=== PATIENT | female | born 1970 | race Caucasian/White ===

== ENCOUNTER → 2016-06-12 | Outpatient (CLI) | payer BC ==
--- NOTE | 2016-06-14 11:48 | MM ---
Reason for exam: screening (asymptomatic). Last mammogram was performed 1 year and 6 months ago. History: Patient is nulliparous. Benign US breast aspiration single LT of the left breast, September 09, 2013. Cancelled US Left Aspiration of the left breast, August 29, 2005. Physical Findings: A clinical breast exam by your physician is recommended on an annual basis and results should be correlated with mammographic findings. MG Screening Mammo w CAD Bilateral CC and MLO view(s) were taken. Prior study comparison: December 25, 2014, bilateral MG screening mammo w CAD. September 09, 2013, left breast MG diagnostic mammo LT wo CAD. August 21, 2013, bilateral MG diagnostic mammo w CAD YOAV. November 01, 2011, bilateral digital screening mammo w/CAD. The breast tissue is heterogeneously dense. This may lower the sensitivity of mammography. Previous mammotome biopsy within the left breast. Stable scattered bilateral breast calcifications. No significant changes when compared with prior studies. ASSESSMENT: Negative, BI-RAD 1 RECOMMENDATION: Routine screening mammogram of both breasts in 1 year.
== END | disposition home or self-care (01) ==
LOC: RADMAMWWP 13:55
PROVIDERS: ATTEND Family Medicine
DX: Z12.31 Encounter for screening mammogram for malignant neoplasm of breast (principal)

== ENCOUNTER 2017-10-17 08:25 | Day surgery (SDC) | payer BC ==
[2017-10-17] MEDS ORDERED: LIDOCAINE 1% 20 ML VIAL (10MG/ML) FOR IV START INTRADERMA ONE (11:00)
[2017-10-17] MEDS ORDERED: LACTATED RINGERS 1,000 ML IV ONE (11:00)
[2017-10-17] MEDS ORDERED: PROPOFOL 10 MG/ML 20 ML VIAL IV ONE (11:04)
[2017-10-17] MEDS ORDERED: LIDOCAINE 1% INJ 10MG/ML (20 ML MDV) ONE (11:04)
[2017-10-17 11:05] VITALS: RESP 16; TEMP 97.9
--- NOTE | 2017-10-17 11:05 | P.GSHP ---
History of Present Illness H&P Date: 10/17/17 CHIEF COMPLAINT: GERD HISTORY OF PRESENT ILLNESS: The patient is a 47-year-old female who presents reports gastroesophageal reflux disease. Upper endoscopy was offered for further evaluation and management. PAST MEDICAL HISTORY: Please see list. PAST SURGICAL HISTORY: Please see list. MEDICATIONS: Please see list. ALLERGIES: Please see list. SOCIAL HISTORY: No illicit drug use FAMILY HISTORY: No reports of Crohn disease or ulcerative colitis. REVIEW OF ORGAN SYSTEMS: CONSTITUTIONAL: No reports of fevers or chills. GI: Denies any blood in stools or constipation. PHYSICAL EXAM: VITAL SIGNS: Stable GENERAL: Well-developed and pleasant in no acute distress. HEENT: No scleral icterus. Extraocular movements grossly intact. Moist buccal mucosa. NECK: Supple without lymphadenopathy. CHEST: Unlabored respirations. Equal bilateral excursions. CARDIOVASCULAR: Regular rate and rhythm. Distal 2+ pulses. ABDOMEN: Soft, nondistended. MUSCULOSKELETAL: No clubbing, cyanosis, or edema. ASSESSMENT: 1. Gastroesophageal reflux disease PLAN: 1. Recommend proceeding with an upper endoscopy Past Medical History Past Medical History: GERD/Reflux Additional Past Medical History / Comment(s): current tx UTI,abnormal pap smear x2 and heavy menses with cramping & clotting,heart murmur History of Any Multi-Drug Resistant Organisms: None Reported Past Surgical History: Adenoidectomy, Cholecystectomy, Orthopedic Surgery, Tonsillectomy Additional Past Surgical History / Comment(s): ?rt ovary removed,lt knee x 2, left foot x 3 or 4 Past Anesthesia/Blood Transfusion Reactions: Motion Sickness, Postoperative Nausea & Vomiting (PONV) Additional Past Anesthesia/Blood Transfusion Reaction / Comment(s): no hx blood transfusion Smoking Status: Never smoker - Past Family History Mother Family Medical History: Hyperlipidemia, Hypertension Additional Family Medical History / Comment(s): precancerous polyps Father Family Medical History: Hyperlipidemia, Hypertension Medications and Allergies Home Medications Medication Instructions Recorded Confirmed Type Cetirizine HCl [Zyrtec] 10 mg PO DAILY 07/28/15 10/17/17 History Meloxicam 15 mg PO DAILY 07/28/15 10/17/17 History Multivitamins, Thera [Multivitamin] 1 tab PO DAILY 07/28/15 10/17/17 History Omeprazole [PriLOSEC] 20 mg PO DAILY PRN 07/28/15 10/17/17 History Pseudoephedrine [Sudafed] 30 mg PO Q4H PRN 07/28/15 10/17/17 History Furosemide [Lasix] 20 mg PO DAILY 10/17/17 10/17/17 History Ranitidine HCl [Zantac] 150 mg PO BID 10/17/17 10/17/17 History Allergies Allergy/AdvReac Type Severity Reaction Status Date / Time adhesive Allergy Rash/Hives Verified 10/17/17 10:44 hydrocodone bitartrate Allergy eye Verified 10/17/17 10:44 [From Vicodin] swelling and itching Iodinated Contrast- Oral and Allergy Swelling Verified 10/17/17 10:44 IV Dye [Iodinated Contrast Media - IV Dye] peas Allergy Unknown Verified 10/17/17 10:44 Penicillins Allergy Anaphylaxis Verified 10/17/17 10:44 shellfish derived [Shrimp] Allergy Unknown Verified 10/17/17 10:44 walnut Allergy Unknown Verified 10/17/17 10:44
--- NOTE | 2017-10-17 11:17 | P.PCN ---
Date of Procedure: 10/17/17 Description of Procedure: PREOPERATIVE DIAGNOSIS: Gastroesophageal reflux disease. Morbid obesity. POSTOPERATIVE DIAGNOSIS: Morbid obesity. Gastric polyps Gastroesophageal reflux disease. Diaphragmatic hiatal hernia OPERATION: Esophagogastroduodenoscopy with biopsies along antrum. SURGEON: Marla Arce MD ANESTHESIA: MAC. INDICATIONS: The patient is a 47-year-old female who presents with a history of reflux disease. Benefits and risks of the procedure were described. Informed consent was obtained. DESCRIPTION: The patient was brought into the endoscopy suite and laid in the left lateral decubitus position. An Olympus gastroscope was passed along the posterior oropharynx down to the distal esophagus where the squamocolumnar junction was encountered at 35 cm from the incisors. The stomach was entered and no bile reflux was found. Additional findings are listed below. Biopsies with cold forceps were obtained of the antrum. The first through third portion of the duodenum was examined and unremarkable. Retroflexion of the scope confirmed Hill grade 2 lower esophageal valve. The squamocolumnar junction demonstrated no LA grade A erosive esophagitis. The stomach was desufflated. The patient tolerated the procedure well. FINDINGS: Squamocolumnar junction 32 cm from the incisors. Diaphragmatic hiatus at 35 cm. Hiatal hernia 3 cm Hill grade 2 lower esophageal valve. No LA grade A erosive esophagitis. No active duodenitis. Gastric polyp RECOMMENDATIONS: Upper endoscopy as needed. Plan - Discharge Summary New Discharge Prescriptions: No Action Multivitamins, Thera [Multivitamin] 1 tab PO DAILY Omeprazole [PriLOSEC] 20 mg PO DAILY PRN PRN Reason: reflux Meloxicam 15 mg PO DAILY Pseudoephedrine [Sudafed] 30 mg PO Q4H PRN PRN Reason: Congestion Cetirizine HCl [Zyrtec] 10 mg PO DAILY Ranitidine HCl [Zantac] 150 mg PO BID Furosemide [Lasix] 20 mg PO DAILY Discharge Medication List Cetirizine HCl [Zyrtec] 10 mg PO DAILY 07/28/15 [History] Meloxicam 15 mg PO DAILY 07/28/15 [History] Multivitamins, Thera [Multivitamin] 1 tab PO DAILY 07/28/15 [History] Omeprazole [PriLOSEC] 20 mg PO DAILY PRN 07/28/15 [History] Pseudoephedrine [Sudafed] 30 mg PO Q4H PRN 07/28/15 [History] Furosemide [Lasix] 20 mg PO DAILY 10/17/17 [History] Ranitidine HCl [Zantac] 150 mg PO BID 10/17/17 [History]
[2017-10-17 12:05] VITALS: BP 123/81; PULSE 81
== END 2017-10-17 12:12 | disposition home or self-care (01) ==
LOC: ORWHC2ENDO 08:25
PROVIDERS: ATTEND Surgery Plastic and Reconstructive Surgery
DX: K29.50 Unspecified chronic gastritis without bleeding (principal); K22.10 Ulcer of esophagus without bleeding; K44.9 Diaphragmatic hernia without obstruction or gangrene; K31.7 Polyp of stomach and duodenum; E66.01 Morbid (severe) obesity due to excess calories; Z79.1 Long term (current) use of non-steroidal anti-inflammatories (NSAID); Z79.899 Other long term (current) drug therapy; Z91.041 Radiographic dye allergy status; Z88.5 Allergy status to narcotic agent; Z91.018 Allergy to other foods; Z88.0 Allergy status to penicillin; Z91.013 Allergy to seafood; Z91.09 Other allergy status, other than to drugs and biological substances
CPT/HCPCS: 88305; 43239; J2001; J2704

== ENCOUNTER → 2017-10-24 | Outpatient (CLI) | payer BC ==
[2017-10-24 17:07] VITALS: BP 111/75; PULSE 91; TEMP 98.1; BMI 38.5
--- NOTE | 2017-10-24 17:36 | P.HPBAR ---
Bariatric H&P - History & Physicial H&P Date: 10/24/17 History & Physicial: Visit/CC: initial clinic visit Patient initial contact: Initial weight: Initial weight in pounds: Height: 4 ft 11 in Initial BMI: Last weight: Current weight: 86.545 kg Current weight in pounds: 190.80 Current BMI: 38.5 [place] body weight (based on NIH guidelines): 43.091 kg Excess body weight loss: The patient is a 47 year-old F who presents for Bariatric Assessment. HPI: Highest weight was 198 pounds. SHe has a family history of morbid obesity. She has severe reflux disease. PLAN: 1. She is looking into the bypass. Past Medical History Past Medical History: GERD/Reflux Additional Past Medical History / Comment(s): current tx UTI,abnormal pap smear x2 and heavy menses with cramping & clotting,heart murmur History of Any Multi-Drug Resistant Organisms: None Reported Past Surgical History: Adenoidectomy, Cholecystectomy, Orthopedic Surgery, Tonsillectomy Additional Past Surgical History / Comment(s): ?rt ovary removed,lt knee x 2, left foot x 3 or 4 Past Anesthesia/Blood Transfusion Reactions: Motion Sickness, Postoperative Nausea & Vomiting (PONV) Additional Past Anesthesia/Blood Transfusion Reaction / Comm: no hx blood transfusion Past Psychological History: No Psychological Hx Reported Smoking Status: Never smoker Past Alcohol Use History: None Reported Past Drug Use History: None Reported - Past Family History Mother Family Medical History: Hyperlipidemia, Hypertension Additional Family Medical History / Comment(s): precancerous polyps Father Family Medical History: Hyperlipidemia, Hypertension Surgical - Exam Vital Signs Temp Pulse BP 98.1 F 91 111/75 10/24/17 17:01 10/24/17 17:01 10/24/17 17:01 Bariatric Checklist Checklist: Plan: Checklist: EGD: 1. Hiatal hernia: 2. H. Pylori: HgbA1c: Vitamin D: Smoking: Never smoker Primary care physician referral: Psychiatry clearance: Cardiology clearance: Sleep study: Diet journal: VTE risk score: VTE risk level: Rehab needs at discharge:
== END ==
LOC: BARWHC3 15:41
PROVIDERS: ATTEND Surgery Plastic and Reconstructive Surgery
DX: E66.01 Morbid (severe) obesity due to excess calories (principal); K21.9 Gastro-esophageal reflux disease without esophagitis; Z68.38 Body mass index [BMI] 38.0-38.9, adult
CPT/HCPCS: 99211

== ENCOUNTER → 2017-11-22 | Outpatient (CLI) | payer BC ==
--- NOTE | 2017-11-23 11:51 | MM ---
Reason for exam: screening (asymptomatic). Last mammogram was performed 1 year and 5 months ago. History: Patient is nulliparous. Benign US breast aspiration single LT of the left breast, September 09, 2013. Cancelled US Left Aspiration of the left breast, August 29, 2005. Physical Findings: A clinical breast exam by your physician is recommended on an annual basis and results should be correlated with mammographic findings. MG 3D Screening Mammo W/Cad Bilateral CC and MLO view(s) were taken. Prior study comparison: June 12, 2016, bilateral MG screening mammo w CAD. December 25, 2014, bilateral MG screening mammo w CAD. The breast tissue is heterogeneously dense. This may lower the sensitivity of mammography. There are stable scattered calcifications. Previous mammotome biopsy in the left breast. No significant changes when compared with prior studies. ASSESSMENT: Benign, BI-RAD 2 RECOMMENDATION: Routine screening mammogram of both breasts in 1 year.
== END | disposition home or self-care (01) ==
LOC: RADMAMWWP 16:32
PROVIDERS: ATTEND Family Medicine
DX: Z12.31 Encounter for screening mammogram for malignant neoplasm of breast (principal)
CPT/HCPCS: 77063; 77067

== ENCOUNTER → 2018-03-20 | Outpatient (CLI) | payer BC ==
--- NOTE | 2018-03-20 15:45 | P.HPBAR ---
Bariatric H&P - History & Physicial H&P Date: 03/20/18 History & Physicial: Visit/CC: Patient initial contact: Initial weight: Initial weight in pounds: Height: Initial BMI: Last weight: Current weight: Current weight in pounds: Current BMI: [place] body weight (based on NIH guidelines): Excess body weight loss: The patient is a 48 year-old F who presents for Bariatric Assessment. HPI: Looking into reflux control. Recommend hiatal hernia for reflux disease. PLAN: 1. Two week protein diet 2. Alternative hiatal hernia repair described including gastric bypass. Past Medical History Past Medical History: GERD/Reflux Additional Past Medical History / Comment(s): current tx UTI,abnormal pap smear x2 and heavy menses with cramping & clotting,heart murmur History of Any Multi-Drug Resistant Organisms: None Reported Past Surgical History: Adenoidectomy, Cholecystectomy, Orthopedic Surgery, Tonsillectomy Additional Past Surgical History / Comment(s): ?rt ovary removed,lt knee x 2, left foot x 3 or 4 Past Anesthesia/Blood Transfusion Reactions: Motion Sickness, Postoperative Nausea & Vomiting (PONV) Additional Past Anesthesia/Blood Transfusion Reaction / Comm: no hx blood transfusion Past Psychological History: No Psychological Hx Reported Smoking Status: Never smoker Past Alcohol Use History: None Reported Past Drug Use History: None Reported - Past Family History Mother Family Medical History: Hyperlipidemia, Hypertension Additional Family Medical History / Comment(s): precancerous polyps Father Family Medical History: Hyperlipidemia, Hypertension Bariatric Checklist Checklist: Plan: Checklist: EGD: 1. Hiatal hernia: 2. H. Pylori: HgbA1c: Vitamin D: Smoking: Never smoker Primary care physician referral: Psychiatry clearance: Cardiology clearance: Sleep study: Diet journal: VTE risk score: VTE risk level: Rehab needs at discharge:
[2018-03-20 16:11] VITALS: BP 128/81; PULSE 79; TEMP 98.1; BMI 35.7
== END | disposition home or self-care (01) ==
LOC: BARWHC3 15:10
PROVIDERS: ATTEND Surgery Plastic and Reconstructive Surgery
DX: K21.9 Gastro-esophageal reflux disease without esophagitis (principal)
CPT/HCPCS: 99211

== ENCOUNTER 2018-07-05 05:46 | Inpatient (IN) | payer BC ==
--- NOTE | 2018-07-04 21:08 | P.GSHP ---
History of Present Illness H&P Date: 07/05/18 CHIEF COMPLAINT: Paraesophageal hiatal hernia with gastroesophageal reflux disease. HISTORY OF PRESENT ILLNESS: The patient is a 48-year-old female who presents with paraesophageal hiatal hernia. She has completed an upper endoscopy workup. Now she presents for surgical intervention. PAST MEDICAL HISTORY: Please see list. PAST SURGICAL HISTORY: Please see list. MEDICATIONS: Please see list. ALLERGIES: Please see list. SOCIAL HISTORY: No illicit drug use FAMILY HISTORY: No reports of Crohn disease or ulcerative colitis. REVIEW OF ORGAN SYSTEMS: CONSTITUTIONAL: No reports of fevers or chills. GI: Denies any blood in stools or constipation. PHYSICAL EXAM: VITAL SIGNS: Stable GENERAL: Well-developed pleasant and in no acute distress. HEENT: No scleral icterus. Extraocular movements grossly intact. Moist buccal mucosa. NECK: Supple without lymphadenopathy. CHEST: Unlabored respirations. Equal bilateral excursions. CARDIOVASCULAR: Regular rate and rhythm. Distal 2+ pulses. ABDOMEN: Soft, nondistended. No peritoneal signs. MUSCULOSKELETAL: No clubbing, cyanosis, or edema. SKIN: Well-perfused. Good skin turgor. ASSESSMENT: 1. Diaphragmatic paraesophageal hiatal hernia with severe gastroesophageal reflux disease. PLAN: 1. Recommend proceeding with a robotic paraesophageal hiatal hernia with possible mesh. 2. Benefits and risks of surgical intervention was discussed including possibility of open technique. 3. Inpatient hospitalization recommended of 2 nights 4. DVT prophylaxis. 5. Antibiotic prophylaxis. Past Medical History Past Medical History: GERD/Reflux Additional Past Medical History / Comment(s): hx. heart murmur, lower leg swelling History of Any Multi-Drug Resistant Organisms: None Reported Past Surgical History: Adenoidectomy, Cholecystectomy, Hysterectomy, Orthopedic Surgery, Tonsillectomy Additional Past Surgical History / Comment(s): ?rt ovary removed,lt knee x 2,left foot x 3 or 4 Past Anesthesia/Blood Transfusion Reactions: Postoperative Nausea & Vomiting (PONV) Additional Past Anesthesia/Blood Transfusion Reaction / Comment(s): no hx blood transfusion Smoking Status: Never smoker - Past Family History Mother Family Medical History: Hyperlipidemia, Hypertension Additional Family Medical History / Comment(s): precancerous polyps Father Family Medical History: Hyperlipidemia, Hypertension Medications and Allergies Home Medications Medication Instructions Recorded Confirmed Type Cetirizine HCl [Zyrtec] 10 mg PO DAILY 07/28/15 06/27/18 History Meloxicam 15 mg PO DAILY 07/28/15 06/27/18 History Multivitamins, Thera [Multivitamin] 1 tab PO DAILY 07/28/15 06/27/18 History Omeprazole [PriLOSEC] 20 mg PO DAILY PRN 07/28/15 06/27/18 History Furosemide [Lasix] 40 mg PO DAILY 10/17/17 06/27/18 History Ranitidine HCl [Zantac] 150 mg PO BID 10/17/17 06/27/18 History Ezetimibe [Zetia] 10 mg PO DAILY 10/24/17 06/27/18 History Allergies Allergy/AdvReac Type Severity Reaction Status Date / Time adhesive Allergy Rash/Hives Verified 06/27/18 12:36 hydrocodone bitartrate Allergy eye Verified 06/27/18 12:36 [From Vicodin] swelling and itching Iodinated Contrast- Oral and Allergy Swelling Verified 06/27/18 12:36 IV Dye [Iodinated Contrast Media - IV Dye] peas Allergy Unknown Verified 06/27/18 12:36 Penicillins Allergy Anaphylaxis Verified 06/27/18 12:36 shellfish derived [Shrimp] Allergy Unknown Verified 06/27/18 12:36 walnut Allergy Unknown Verified 06/27/18 12:36
[~2018-07-05 05:46] MED LIST: CLINDAMYCIN 900 MG in DEXTROSE 5% IN WATER 50 ML IVPB ONE; HEPARIN SODIUM,PORCINE 5,000 UNIT/ML 1 ML VIAL SQ ONE; LEVOFLOXACIN 500MG-D5W PMX 500 MG in DEXTROSE/WATER 1 100ML.BAG IVPB ONE
[2018-07-05] MEDS ORDERED: DEXAMETHASONE SOD PHOSPHATE 10 MG/ML 1 ML VIAL IV ONE (05:55)
[2018-07-05] MEDS ORDERED: HYDROmorphone 0.5 MG/0.5 ML SYRINGE IVP PRN (05:55)
[2018-07-05] MEDS ORDERED: ONDANSETRON 4 MG/2 ML VIAL IVP ONE (05:55)
[2018-07-05] MEDS ORDERED: SCOPOLAMINE 1.5MG/72HR PATCH TRANSDERM ONE (05:55)
[2018-07-05] MEDS ORDERED: SCOPOLAMINE 1.5MG/72HR PATCH TRANSDERM SCH (05:58)
[2018-07-05] MEDS ORDERED: CHLORHEXIDINE GLUCONATE 15 ML CUP MUCOUS MEM ONE (05:58)
[2018-07-05] MEDS ORDERED: PANTOPRAZOLE 40 MG/10 ML VIAL IV STA (05:58)
[2018-07-05] MEDS: LACTATED RINGERS 1,000 ML IV SCH (06:36)
[2018-07-05] MEDS ORDERED: LIDOCAINE 1% 20 ML VIAL (10MG/ML) FOR IV START INTRADERMA ONE (06:37)
[2018-07-05] MEDS ORDERED: ROCURONIUM BROMIDE 10 MG/ML 10 ML VIAL IV ONE (07:31)
[2018-07-05] MEDS ORDERED: KETOROLAC 30 MG/ML 1 ML VIAL ONE (07:31)
[2018-07-05] MEDS ORDERED: NEOSTIGMINE 1 MG/ML 10 ML VIAL ONE (07:31)
[2018-07-05] MEDS ORDERED: LIDOCAINE 1% INJ 10MG/ML (20 ML MDV) ONE (07:31)
[2018-07-05] MEDS ORDERED: PROPOFOL 10 MG/ML 20 ML VIAL IV ONE (07:31)
[2018-07-05] MEDS ORDERED: fentaNYL (PF) 50 MCG/ML 2 ML AMP ONE (07:31)
[2018-07-05] MEDS ORDERED: MIDAZOLAM 2 MG/2 ML VIAL ONE (07:31)
[2018-07-05] MEDS ORDERED: GLYCOPYRROLATE 0.2 MG/ML 2 ML VIAL ONE (07:31)
[2018-07-05] MEDS ORDERED: ePHEDrine SULFATE/0.9% NACL/PF 50 MG/5 ML SYRINGE IV ONE (07:31)
[2018-07-05] MEDS ORDERED: BUPIVACAIN-EPI 0.25%-1:200,000 30 ML VIAL SQ ONE (07:58)
[2018-07-05] MEDS ORDERED: LACTATED RINGERS 1,000 ML IV ONE (09:39)
[2018-07-05] MEDS ORDERED: NALOXONE 0.4 MG/ML 1 ML VIAL IV PRN (10:23)
[2018-07-05] MEDS ORDERED: diphenhydrAMINE 50 MG/ML 1 ML VIAL IVP PRN (10:30)
--- NOTE | 2018-07-05 10:36 | P.OP ---
Date of Procedure: 07/05/18 Description of Procedure: SURGEON: HOLLY LOPEZ MD PREOPERATIVE DIAGNOSES: 1. Symptomatic paraesophageal diaphragmatic hiatal hernia. 2. Gastroesophageal reflux disease, severe 3. Hypertensive heart disease 4. Anxiety disorder 5. Obesity, BMI 34.1. POSTOPERATIVE DIAGNOSES: 1. Symptomatic midline paraesophageal diaphragmatic hiatal hernia, incarcerated, 3 x 4 cm 2. Gastroesophageal reflux disease, severe 3. Hypertensive heart disease 4. Anxiety disorder 5. Obesity, BMI 34.1. OPERATION: 1. Robotic-assisted da Alejandra Xi laparoscopic repair of incarcerated paraesophageal hiatal hernia, 3 x 4 cm, with [place] Biopatch A 8 x 8 cm. 2. Intraoperative esophagogastroduodenoscopy ANESTHESIA: General with local anesthetic. ESTIMATED BLOOD LOSS: 5 mL SPECIMENS REMOVED: None. COMPLICATIONS: None. Condition: stable Disposition: floor FINDINGS: 1. Midline incarcerated paraesophageal hiatal hernia 3 x 4 cm 2. Intraoperative upper endoscopy confirms complete closure of hiatal hernia from Hill grade 4 to Hill grade 1 3. No gastric ulcers INDICATIONS: The patient is a 48-year-old female who presents with severe gastroesophageal reflux disease poorly controlled despite medications, and a symptomatic diaphragmatic hiatal hernia. Preoperative workup including upper endoscopy demonstrated a Hill grade 4 lower esophageal valve. Given the severity of symptoms, she had elected for surgical intervention. Benefits and risks including bleeding, infection, recurrence, dysphagia, injury to the lung, need for further surgery was described at length. Informed consent was obtained. DESCRIPTION: The patient was brought into the operating room and placed in supine position. Preoperatively she had received heparin subcutaneously for DVT prophylaxis. After general induction, the abdomen was prepped and draped in standard sterile fashion. The patient had previously voided prior to coming to the operating room. [place] draping was placed along the abdomen. A timeout protocol was confirmed with the surgical team, for which the patient's name, procedure to be performed including DVT prophylaxis with bilateral SCDs, and preoperative antibiotics were also confirmed. A robotic da Alejandra Xi system was prepped and primed. Her xipohoid to umbilicus length is 13 cm. At 12 cm from the xiphoid to just below the umbilicus, proposed port sites were marked with indelible marker along the left axillary line, left mid-clavicular line with each ports were marked 10 cm from each other. A 5 mm 0 degrees laparoscopic trocar entry was performed along the left upper quadrant. The abdomen was insufflated to 15 mmHg pressure was tolerated well. Diagnostic laparoscopy demonstrated no injury to bowel, viscera, or mesentery. No injury had occurred to the small bowel or viscera. Next, one 8 mm robotic port was placed along the right upper abdomen. An 8-mm port was were placed along the left lateral abdominal wall. The camera 8-mm port was maintained along the epigastrium via the hernia defect. Another 12 mm port was placed along the left upper abdominal wall after exchanging the 5 mm port. Please note that the ports were placed at least 20 cm away from the target anatomy. Care was taken to check that each robotic arm were safely away from collision with the bed or the patient. At the epigastrium, a medium sized Rachel liver retractor was placed under direct visualization with the Iron Sales Merchandiser placed under the right shoulder of the patient. All robotic arms were used. The patient was repositioned in reverse Trendelenburg position at 16-degrees after lowering the bed. The robot was docked above the right side of the patient. Using a grasper for arm 3, a grasper for arm 1, including vessel sealer for arm 2, the robotic system was docked and primed as described. Instruments were interchanged by the assistant men's soccer coach. I had sat at the console. The gastrohepatic ligament was cleaved using a vessel sealer. Next, the phrenoesophageal ligament was mobilized and the distal esophagus was mobilized circumferentially. The left and right crura was identified. Moderate dissection into the mediastinum was performed to release the esophagus into the abdominal cavity. The paraesophageal hiatal hernia sac was also incised and divided from the esophagus. Care was taken to avoid any gastrotomy. The measured defect was consistent with 4 cm axial length and 3 cm in width. After dissection, the distal esophagus of 3 cm was brought into the abdominal cavity. Once the hiatus and crura was dissected, 2-0 VLOC suture was placed to reapproximate the diaphragmatic hiatus posteriorly. To buttress the repair, a [place] Biopatch A was prepared along the back table and cut in half of a cosme-hole fashion as to reinforce the repair as an underlay. The mesh was placed along the crural repair and tagged using horizontal mattress sutures using 2-0 VLOC. I went to the head of the bed to perform intraoperative esophagogastroduodenoscopy. An Olympus gastroscope was passed through posterior oropharynx. Retroflexion of the scope confirmed a Hill grade 1 lower esophageal valve. The stomach had been desufflated. No evidence of leaks were found of the esophagus or stomach. The squamocolumnar junction and hiatus was placed at 40 cm from the incisors. The GI tract with desufflated This concluded the endoscopic portion of the case. The robot was undocked from the patient. I re-scrubbed into the case. All instruments and pneumoperitoneum and specimens were evacuated from the abdominal cavity. Incisions were reapproximated using 4-0 Monocryl in an interrupted subcuticular fashion. Liquid glue was applied to the skin. Local anesthetic was infiltrated in all wounds for postop analgesia. Multiple intra-abdominal films were obtained. At the end of the procedure, needle, sponge, and instrument count was verified correct by the surgical elastic knitter. The patient had tolerated the procedure well and was taken to the postanesthesia unit in stable condition. Intraoperative films were reviewed with the patient's family who was pleased with the level of care. Console time 71 minutes.
[2018-07-05] MEDS ORDERED: HYDROmorphone 1 MG/ML 1 ML SYRINGE IVP PRN (11:39)
[2018-07-05] MEDS: D5-0.45% NACL WITH KCL 20MEQ/L 1,000 ML IV SCH ×2 (14:12→19:56)
[2018-07-05] MEDS: SIMETHICONE 40 MG/0.6 ML DROPS 2,000 MG/30 ML BOTTLE PO SCH ×3 (14:13→23:57)
[2018-07-05] MEDS: HYOSCYAMINE ORAL DROPS 1.875 MG/15 ML BOTTLE PO SCH ×3 (14:14→23:57)
[2018-07-05] MEDS: METOCLOPRAMIDE 5 MG/ML 2 ML VIAL IVP SCH ×3 (14:15→23:56)
--- NOTE | 2018-07-05 15:16 | FL ---
EXAMINATION TYPE: FL esophagus cervic/pharynx DATE OF EXAM: 07/05/2018 LIMITED UGI-ESOPHAGRAM: CLINICAL HISTORY: Hiatal hernia and reflux-like symptoms status post Vaughn fundoplication surgery e shira today. TECHNIQUE: Limited esophagram is performed utilizing 20 oz of barium. A total of approximately 20 se conds of fluoroscopic time was utilized during procedure. 15 spot images are stable. FINDINGS: The patient swallowed contrast without difficulty or delay. Some underlying esophageal dys motility is present with abnormal secondary tertiary contractions. There is some delay in flow of con trast along the diaphragmatic hiatus into the stomach, there is no evidence of contrast extravasation to suggest leak. No persistent hiatal hernia is seen. Patient remains asymptomatic. Some contrast re paul in the mid to distal esophagus with reflux. Tiny amount of free air below right hemidiaphragm i s noted. Cholecystectomy clips are incidentally seen. IMPRESSION: No evidence of leak or persistent hiatal hernia status post Vaughn fundoplication surgery earlier today.
[2018-07-05] MEDS: KETOROLAC 30 MG/ML 1 ML VIAL IVP SCH ×2 (15:50→21:35)
--- NOTE | 2018-07-05 18:38 | P.PN ---
Progress Note - Text Progress Note Date: 07/05/18 She is doing well. Discharge home tomorrow.
[2018-07-05] MEDS: FAMOTIDINE 20 MG/2 ML VIAL IV SCH (21:38)
[2018-07-06 00:05] VITALS: RESP 16
[2018-07-06] MEDS: KETOROLAC 30 MG/ML 1 ML VIAL IVP SCH ×2 (03:36→10:16)
[2018-07-06] MEDS: METOCLOPRAMIDE 5 MG/ML 2 ML VIAL IVP SCH (05:59)
[2018-07-06] MEDS: HYOSCYAMINE ORAL DROPS 1.875 MG/15 ML BOTTLE PO SCH ×2 (06:00→13:32)
[2018-07-06] MEDS: SIMETHICONE 40 MG/0.6 ML DROPS 2,000 MG/30 ML BOTTLE PO SCH ×2 (06:00→13:31)
[2018-07-06] MEDS: D5-0.45% NACL WITH KCL 20MEQ/L 1,000 ML IV SCH ×2 (06:17→12:33)
[2018-07-06] MEDS: LACTATED RINGERS 1,000 ML IV SCH (06:18)
[2018-07-06 07:58] LABS: Basophils % (A) 0 %; Eosinophils # (A) 0.1 k/uL (0-0.7); Eosinophils % (A) 1 %; HCT 35.3 % (34.0-46.0); HGB 11.9 gm/dL (11.4-16.0); Lymphocytes # (A) 1.8 k/uL (1.0-4.8); Lymphocytes % (A) 17 %; MCH 29.3 pg (25.0-35.0); MCHC 33.8 g/dL (31.0-37.0); MCV 86.8 fL (80.0-100.0); Mean Platelet Volume 7.1; Monocytes # (A) 0.5 k/uL (0-1.0); Monocytes % (A) 5 %; Neutrophils # (A) 8.2 k/uL (1.3-7.7); Neutrophils % (A) 77 %; Platelet Count 343 k/uL (150-450); RBC 4.06 m/uL (3.80-5.40); RDW 13.7 % (11.5-15.5); WBC 10.8 k/uL (3.8-10.6)
[2018-07-06] MEDS: FAMOTIDINE 20 MG/2 ML VIAL IV SCH (08:00)
[2018-07-06] MEDS ORDERED: 0.9% NACL WITH KCL 20 MEQ/L 1,000 ML IV SCH (08:00)
[2018-07-06 08:20] LABS: Anion Gap 5 mmol/L; Blood Urea Nitrogen 9 mg/dL (7-17); Calcium 8.8 mg/dL (8.4-10.2); Carbon Dioxide 27 mmol/L (22-30); Chloride 108 mmol/L (98-107); Magnesium 2.2 mg/dL (1.6-2.3); Phosphorus 2.3 mg/dL (2.5-4.5); Potassium 4.2 mmol/L (3.5-5.1); Sodium 140 mmol/L (137-145)
[2018-07-06] MEDS ORDERED: ENOXAPARIN 30 MG/0.3 ML SYRINGE SQ SCH (09:00)
[2018-07-06] MEDS ORDERED: SODIUM CHLORIDE 0.9% 1,000 ML IV SCH (11:15)
--- NOTE | 2018-07-06 11:42 | P.PN ---
Subjective Progress Note Date: 07/06/18 CHIEF COMPLAINT: Status post hiatal hernia repair HISTORY OF PRESENT ILLNESS: The patient is a 48-year-old female postop day 1 status post hiatal hernia repair. She denies any complaints. Review of vitals, overnight she had hypotension systolic in the 70s. This morning her systolic in the 90s. She is asymptomatic. She is ambulating. No reports of dysphasia. She passed her swallow study yesterday. She reports her usual blood pressure systolic and 100s. ROS: No reports of nausea and vomiting. No bowel movements. No fevers or chills. No new chest pain. No productive sputum PHYSICAL EXAM: VITAL SIGNS: Reviewed CONSTITUTIONAL: Well developed and in no acute distress. EYES: Conjuctivae without sclera icterus. Extraocular movements grossly intact. HEAD, EARS, NOSE, THROAT: Moist buccal mucosa. Head is atraumatic, normocephalic. Hears conversational speech. No nasal drainage. NECK: Supple. No thyroidomegaly. RESPIRATORY: Non-labored respirations and equal bilateral excursions. CARDIOVASCULAR: Palpable 2+ radial pulses. Regular rate. Regular rhythm. ABDOMEN: Incisions clean dry and intact. Soft. No peritonitis. MUSCULOSKELETAL: No gross deformity of the lower extremities noted. No clubbing. No cyanosis. SKIN: Good skin turgor. Well perfused. NEUROLOGIC: Cranial nerves I through XII grossly intact. No focal or lateralizing signs. PSYCH: Appropriate affect. Alert and oriented to person, place and time. CLINCAL LABS: WBC mildly elevated. ASSESSMENT: 1. Status post hiatal hernia repair 2. Hypotension, asymptomatic PLAN: 1. Toradol discontinued to prevent postoperative bleeding. 2. Normal saline IV fluid bolus 1-2 L. 3. Repeat hemoglobin 6 to 8 hours 4. Discharge pending blood pressure Objective - Vital Signs Vital signs: Vital Signs Temp 98.1 F 07/06/18 08:27 Pulse 97 07/06/18 08:27 Resp 16 07/06/18 08:27 BP 91/63 07/06/18 08:27 Pulse Ox 97 07/06/18 08:27 Intake & Output 07/05/18 07/06/18 07/06/18 18:59 06:59 18:59 Intake Total 1456 300 Output Total 5 Balance 1451 300 Intake: IV 1456 Oral 300 Output: Estimated Blood Loss 5 Other: Voiding Method Toilet Toilet # Voids 2 1 - Labs CBC & Chem 7: 07/06/18 06:31 07/06/18 06:31 Labs: Abnormal Lab Results - Last 24 Hours (Table) 07/06/18 07/06/18 Range/Units 06:31 06:31 WBC 10.8 H (3.8-10.6) k/uL Neutrophils # 8.2 H (1.3-7.7) k/uL Chloride 108 H (98-107) mmol/L Phosphorus 2.3 L (2.5-4.5) mg/dL
[2018-07-06 11:52] VITALS: BMI 34.1
[2018-07-06 13:43] VITALS: TEMP 97.9
[2018-07-06 14:21] LABS: HCT 34.7 % (34.0-46.0); HGB 11.3 gm/dL (11.4-16.0); MCH 29.4 pg (25.0-35.0); MCHC 32.6 g/dL (31.0-37.0); MCV 90.4 fL (80.0-100.0); Mean Platelet Volume 6.7; Platelet Count 318 k/uL (150-450); RBC 3.84 m/uL (3.80-5.40); RDW 12.9 % (11.5-15.5); WBC 8.8 k/uL (3.8-10.6)
[2018-07-06 15:18] VITALS: BP 108/78
[2018-07-06 15:19] VITALS: PULSE 86
[2018-07-07] MEDS ORDERED: BISACODYL 5 MG TABLET.DR PO PRN (08:00)
== END 2018-07-06 17:52 | disposition home or self-care (01) | DRG 328 ==
LOC: 2ORMAIN 05:46 → 6PED 10:08
PROVIDERS: ADMIT Surgery Plastic and Reconstructive Surgery; ATTEND Surgery Plastic and Reconstructive Surgery
PROC: 8E0W4CZ Robotic Assisted Procedure of Trunk Region, Percutaneous Endoscopic Approach (ICD-10-PCS; 2018-07-05)
PROC: 0DJ08ZZ Inspection of Upper Intestinal Tract, Via Natural or Artificial Opening Endoscopic (ICD-10-PCS; 2018-07-05)
PROC: 0BUT4JZ Supplement Diaphragm with Synthetic Substitute, Percutaneous Endoscopic Approach (ICD-10-PCS; principal; 2018-07-05 07:30)
DX: K44.0 Diaphragmatic hernia with obstruction, without gangrene (principal); I95.9 Hypotension, unspecified; E66.9 Obesity, unspecified; I11.9 Hypertensive heart disease without heart failure; F41.9 Anxiety disorder, unspecified; K21.9 Gastro-esophageal reflux disease without esophagitis; R01.1 Cardiac murmur, unspecified; Z68.34 Body mass index [BMI] 34.0-34.9, adult; Z79.1 Long term (current) use of non-steroidal anti-inflammatories (NSAID); Z79.899 Other long term (current) drug therapy; Z90.721 Acquired absence of ovaries, unilateral; Z90.710 Acquired absence of both cervix and uterus; Z90.49 Acquired absence of other specified parts of digestive tract; Z91.041 Radiographic dye allergy status; Z88.5 Allergy status to narcotic agent; Z91.018 Allergy to other foods; Z88.0 Allergy status to penicillin; Z91.013 Allergy to seafood; Z82.49 Family history of ischemic heart disease and other diseases of the circulatory system
CPT/HCPCS: 74210; 80051; 82310; 82565; 83735; 84100; 84520; 85025; 85027; 94760

== ENCOUNTER → 2022-09-06 | Outpatient (CLI) | payer BC ==
[2022-09-06 16:41] LABS: Basophils # (A) 0.06 X 10*3/uL (0.00-0.10); Basophils % (A) 0.8 %; Eosinophils # (A) 0.14 X 10*3/uL (0.04-0.35); Eosinophils % (A) 1.8 %; HCT 40.8 % (37.2-46.3); HGB 13.4 d/dL (12.0-15.0); Lymphocytes # (A) 2.99 X 10*3/uL (0.90-5.00); Lymphocytes % (A) 38.9 %; MCH 28.4 pg (27.0-32.0); MCHC 32.8 d/dL (32.0-37.0); MCV 86.4 FL (80.0-97.0); Mean Platelet Volume 9.5 FL (9.5-12.2); Monocytes # (A) 0.53 X 10*3/uL (0.20-1.00); Monocytes % (A) 6.9 %; NRBC Per 100 WBC 0 X 10*3/uL (0.00-0.01); Neutrophils # (A) 3.93 X 10*3/uL (1.80-7.70); Neutrophils % (A) 51.2 %; Platelet Count 428 X 10*3/uL (140-440); RBC 4.72 X 10*6/uL (4.10-5.20); RDW 12.7 % (11.5-14.5); WBC 7.68 X 10*3/uL (4.50-10.00)
[2022-09-06 17:15] LABS: Erythrocyte Sedimentation Rate 50 mm/Hr (0-30)
== END | disposition home or self-care (01) ==
LOC: LABWHC1 11:15
PROVIDERS: ATTEND Orthopaedic Surgery
DX: M25.50 Pain in unspecified joint (principal)
CPT/HCPCS: 36415; 85025; 85652; 86140

== ENCOUNTER → 2022-09-13 | Outpatient (CLI) | payer BC | END | disposition home or self-care (01) | LOC: LABPAT 09:28 | PROVIDERS: ATTEND Orthopaedic Surgery | DX: Z01.812 Encounter for preprocedural laboratory examination (principal); T84.84XA Pain due to internal orthopedic prosthetic devices, implants and grafts, initial encounter; Z96.651 Presence of right artificial knee joint; Z22.322 Carrier or suspected carrier of Methicillin resistant Staphylococcus aureus | CPT/HCPCS: 87070 ==

== ENCOUNTER 2022-10-17 09:04 | Inpatient (IN) | payer BC ==
[2022-10-13 14:18] VITALS: BMI 38.0
--- NOTE | 2022-10-16 09:09 | P.HPOR ---
History of Present Illness H&P Date: 10/16/22 Chief Complaint: Right knee pain The patient is a 52-year-old female who presents with persistent/progressive right knee pain after undergoing total knee arthroplasty in April 2022 in [place]. She notes pain with any weightbearing activities. She also notes swelling. She denies fevers or chills. She notes pain that bothers her daily and limits her significantly. Review of Systems As per HPI Past Medical History Past Medical History: GERD/Reflux, Hyperlipidemia, Osteoarthritis (OA), Sleep Apnea/CPAP/BIPAP Additional Past Medical History / Comment(s): hx. heart murmur, lower leg swelling. CURRENTLY ON PREDNISONE AND ANTIBIOTIC FOR SINUS INFECTION-DR. ELIECER ARITA. USES C PAP History of Any Multi-Drug Resistant Organisms: None Reported Past Surgical History: Adenoidectomy, Cholecystectomy, Hysterectomy, Joint Replacement, Orthopedic Surgery, Tonsillectomy Additional Past Surgical History / Comment(s): ?rt ovary removed,RT KNEE SX, RT TKA, left foot x 3 or 4, COLONOSCOPY, Past Anesthesia/Blood Transfusion Reactions: Postoperative Nausea & Vomiting (PONV) Additional Past Anesthesia/Blood Transfusion Reaction / Comment(s): no hx blood transfusion Smoking Status: Never smoker - Past Family History Mother Family Medical History: Cancer, Hyperlipidemia, Hypertension Additional Family Medical History / Comment(s): precancerous polyps Father Family Medical History: Cancer, Hyperlipidemia, Hypertension Medications and Allergies Home Medications Medication Instructions Recorded Confirmed Type ALPRAZolam [Xanax] 0.25 mg PO DAILY PRN 10/13/22 10/13/22 History Doxycycline [Vibramycin] 100 mg PO BID 10/13/22 10/13/22 History Ezetimibe [Zetia] 10 mg PO HS 10/13/22 10/13/22 History Fexofenadine/Pseudoephedrine 1 tab PO DAILY 10/13/22 10/13/22 History [Dede-D 24 Hour Tablet] Furosemide [Lasix] 20 mg PO DAILY 10/13/22 10/13/22 History Omeprazole 20 mg PO HS 10/13/22 10/13/22 History methocarbamoL [Methocarbamol] 500 mg PO BID 10/13/22 10/13/22 History predniSONE 10 mg PO BID 10/13/22 10/13/22 History Allergies Allergy/AdvReac Type Severity Reaction Status Date / Time adhesive Allergy Rash/Hives Verified 10/13/22 14:03 hydrocodone bitartrate Allergy eye Verified 10/13/22 14:03 [From Vicodin] swelling and itching Iodinated Contrast Media Allergy Swelling Verified 10/13/22 14:03 [Iodinated Contrast Media - IV Dye] Penicillins Allergy Anaphylaxis Verified 10/13/22 14:03 shellfish derived [Shrimp] Allergy LIPS Verified 10/13/22 14:03 SWELLING walnut Allergy PER Verified 10/13/22 14:03 ALLERGY TESTING peas AdvReac HEADACHE Verified 10/13/22 14:03 Physical Examination - Knee right Appearance: effusion Effusion grade: trace Previous incision location: Midline incision without erythema or drainage Tenderness with palpation: anterior, peripatellar Pain: throughout ROM Gait: limping ROM: extension: -15 degrees ROM: flexion: 90 degrees Crepitus with motion: Yes Strength: extension: 5/5 Strength: flexion: 5/5 Meniscal tests: medial joint line pain: positive Results The patient is a well-developed well-nourished female approximately 4 foot 11, 190 pounds of endomorphic habitus. HEENT exam is nonfocal, neck is supple. She has painless passive motion of the right hip. Straight leg raise negative. On the right knee, she is tender diffusely anteriorly. There is no warmth or erythema. Collaterals are stable, no gross extensor mechanism defect is noted. Homans is negative. Her distal neurovascular appears intact in the right lower extremity. - Diagnostic results Knee x-ray: image reviewed (2 views of the right knee obtaining our office show a total knee arthroplasty with femoral and tibial components without definite loosening or lucency. There is varus alignment of the tibia component. The patella is not resurfaced.) Assessment and Plan Assessment: Painful right total knee arthroplasty Right knee patellofemoral compartment osteoarthrosis Obesity Plan: I talked to the patient at length regarding her condition at this point she's quite symptomatic and limited because of pain. After thorough discussion of her options, she opted to proceed with surgery. We will plan to proceed with revision total knee arthroplasty. We will obtain a frozen section intraoperatively to rule out deep infection. She understands there is a possibility of a cement spacer implantation if infection is suspected.
[~2022-10-17 09:04] MED LIST changes: +ACETAMINOPHEN TAB 500 MG TAB PO PRN; -CLINDAMYCIN 900 MG in DEXTROSE 5% IN WATER 50 ML IVPB ONE; -HEPARIN SODIUM,PORCINE 5,000 UNIT/ML 1 ML VIAL SQ ONE; -LEVOFLOXACIN 500MG-D5W PMX 500 MG in DEXTROSE/WATER 1 100ML.BAG IVPB ONE; +MELOXICAM 7.5 MG TAB PO PRN; +TRANEXAMIC 1,000 MG/100ML-NACL 1,000 MG in SALINE 1 100ML.BAG IVPB PRN
[2022-10-17] MEDS ORDERED: HYDROmorphone 0.5 MG/0.5 ML SYRINGE IVP PRN ×2 (10:09→13:59)
[2022-10-17] MEDS ORDERED: DEXAMETHASONE SOD PHOSPHATE 4 MG/ML 1 ML VIAL IV ONE (10:09)
[2022-10-17] MEDS ORDERED: fentaNYL (PF) 50 MCG/ML 2 ML AMP IV PRN (10:09)
[2022-10-17 10:48] LABS: Glucose,Whole Blood 82 mg/dL (70-110)
[2022-10-17] MEDS: LACTATED RINGERS 1,000 ML IV SCH (10:48)
[2022-10-17] MEDS ORDERED: ONDANSETRON 4 MG/2 ML VIAL ONE (10:52)
[2022-10-17] MEDS ORDERED: MIDAZOLAM 2 MG/2 ML VIAL IVP ONE (11:40)
[2022-10-17] MEDS ORDERED: HYDROmorphone (PF) 1 MG/ML ONE (12:08)
[2022-10-17] MEDS ORDERED: fentaNYL (PF) 50 MCG/ML 2 ML AMP ONE (12:08)
[2022-10-17] MEDS ORDERED: TRANEXAMIC 1,000 MG/100ML-NACL PREMIX BAG ONE (12:08)
[2022-10-17] MEDS ORDERED: MIDAZOLAM 2 MG/2 ML VIAL ONE (12:08)
[2022-10-17] MEDS ORDERED: LIDOCAINE 2% INJ 20 MG/ML (2 ML VIAL) ONE (12:08)
[2022-10-17] MEDS ORDERED: ROPIVACAINE 5 MG/ML 30 ML VIAL ONE (12:08)
[2022-10-17] MEDS ORDERED: PROPOFOL 10 MG/ML 20 ML VIAL IV ONE (12:08)
[2022-10-17] MEDS ORDERED: SUCCINYLCHOLINE CHLORIDE 200 MG/10 ML VIAL IV ONE (12:08)
[2022-10-17] MEDS ORDERED: ceFAZolin 1,000 MG in SODIUM CHLORIDE 0.9% 1,000 ML IRRIGATION ONE (12:56)
[2022-10-17] MEDS ORDERED: ROPIVACAINE 1,100 MG, SODIUM CHLORIDE 0.9% 500 ML 330 ML, EMPTY PAIN BALL 1 EACH MISCELLANE PRN ×2 (12:59)
--- NOTE | 2022-10-17 13:00 | P.ANPRN ---
Procedure Note - Anesthesia - Nerve Block Performed Right Adductor Canal Time Out Performed: Yes (11:39) Date of Procedure: 10/17/22 Procedure Start Time: :39 Procedure Stop Time: :48 Location of Patient: PreOp Indication: Acute Post-Operative Pain, Requested by Surgeon (Dr Bradley) Sedation Type: Sedate with meaningful contact maintained Preparation: Sterile Prep, Sterile Dressing Position: Supine Catheter: Indwelling Needle Types: Pajunk Needle Gauge: 21 Ultrasound used to visualize needle placement: Yes Ultrasound used to observe medication spread: Yes Injectate: 0.5% Ropivacaine (see comment for volume) (20cc) Blood Aspirated: No Pain Paresthesia on Injection Noted: No Resistance on Injection: Normal Image Stored and Saved: Yes Events: Uneventful and Well Tolerated
[2022-10-17] MEDS ORDERED: NALOXONE 0.4 MG/ML 1 ML VIAL IV PRN (13:59)
[2022-10-17] MEDS ORDERED: HYDROcodone/APAP 5-325MG 1 EACH TAB PO PRN (13:59)
[2022-10-17] MEDS ORDERED: HYDROcodone/APAP 7.5-325MG 1 EACH TAB PO PRN (13:59)
[2022-10-17] MEDS ORDERED: MAGNESIUM HYDROXIDE 2,400 MG/30 ML CUP PO PRN (13:59)
[2022-10-17] MEDS ORDERED: HYDROmorphone 1 MG/ML 1 ML SYRINGE IVP PRN (13:59)
[2022-10-17] MEDS ORDERED: LACTATED RINGERS 1,000 ML IV ONE (14:01)
--- NOTE | 2022-10-17 14:38 | P.OP ---
Date of Procedure: 10/17/22 Preoperative Diagnosis: Painful right total knee arthroplasty/patellofemoral arthritis Postoperative Diagnosis: Same Procedure(s) Performed: Revision right total knee arthroplasty with patellar resurfacing Implants: [employer] size 2 tibial component with 11 x 120 mm tibial stem, 26 mm cemented patellar component, 10 mm posterior stabilized articular surface. Anesthesia: GETA, regional, spinal Surgeon: Julius Bradley Flash Welding Machine Operator #1: Donaldo Lagunas Estimated Blood Loss (ml): 50 Pathology: other (Frozen section) Condition: stable Disposition: PACU Indications for Procedure: The patient is a 52-year-old female presents after undergoing a right total knee arthroplasty without patellar resurfacing earlier this year with significant persistent pain. A discussion of the risks and benefits of operative intervention versus continued conservative measures was made with patient. She opted to proceed with surgery. We discussed possible revision of all components specifically the tibial component that was in significant varus positioning. Specific risks of surgery to include infection, neurovascular injury, development of blood clots, possible component loosening/failure and need for subsequent procedures was discussed. Informed consent was obtained. Operative Findings: As below Description of Procedure: The patient was brought to the operating room, and after induction of spinal anesthesia the right lower extremity was prepped and draped in a normal fashion. The spinal was not working well therefore it was converted to a general anesthetic. The tourniquet was inflated to 270 mm marker. The previous longitudinal incision extending 3 finger breaths above the superior pole of patella extending to the medial aspect the tibial tubercle was then made. The skin and subcutaneous tissues were divided sharply. Electrocautery was used for hemostasis. A medial parapatellar arthrotomy was performed. The medial soft tissues to include the superficial and deep portions of the medial collateral ligament were elevated subperiosteally. The patella was everted. A portion of the retropatellar fat pad was excised sharply. Blunt retractors were placed. The polyethylene articular surface was removed. Synovial tissue was sent for frozen section. I then proceeded to remove the tibial component. A thin saw blade was utilized to break the bone cement interface. Small osteotomes were also utilized. The tibial component was easily removed with minimal bone loss. Previously placed cement was removed. I then reamed the tibial canal with an entry reamer. Sequential reaming was performed up to 11 mm to the appropriate depth. The tibia was then prepared with the appropriate drill and keel punch. A trial size 2 tibial component was then placed with an 11 x 120 mm stem. A trial size 10 posterior stabilized articular surface was placed. The knee was then taken through range of motion. I felt it was stable to varus and valgus stress throughout range of motion. After several flexion and extension cycles, the tibial rotation was marked with electrocautery line with the medial one third of the tibial tubercle. Attention was then paid towards preparing the patella. A patella reamer was utilized taking stem to 14 mm of bone stock. A good flush cut was made. The patella sized most appropriately at 26 mm. The peg holes were drilled. The trial component was placed. I had good patellofemoral tracking with no hands technique. The trial components were then removed. The pathology showed no acute inflammation. The bony surfaces were prepared with pulsatile lavage and dried. The tibial component was then cemented place was fully seated. Excess cement was removed. The trial 10 mm articular surface was placed and the knee was put in full extension. The patella component was cemented place. After the cement had sufficiently hardened, the knee was again taken through a range of motion. Again I was able to obtain full flexion and extension with varus and valgus stress. The trial 10 mm articular surface was removed and the final one inserted. This was fully seated. Care was taken to avoid any soft tissue interposition. Pulsatile lavage was again utilized. The medial parapatellar arthrotomy was closed with #2 Ethibond suture. The tourniquet was deflated with approximately 60 minutes total tourniquet time. Final hemostasis was obtained with the cautery. There was minimal bleeding therefore a deep drain was not placed. The subcutaneous tissues were reapproximated with interrupted 2-0 Vicryl sutures. The skin was reapproximated with 3-0 subcuticular strata fix suture. Skin tape and adhesive was applied. A sterile dressing was applied. The patient was awoken from general anesthesia and transferred to recovery room in good condition. Blood loss was estimated at 50 mL. No complications were incurred. Sponge and needle counts were correct at the end of the case. Donaldo HENDRICKSON assisted during the major components of this case to include exposure, bone resection, implantation, and closure.
--- NOTE | 2022-10-17 15:03 | XR ---
EXAMINATION TYPE: XR knee limited RT DATE OF EXAM: 10/17/2022 COMPARISON: NONE TECHNIQUE: Two views submitted HISTORY: Post op FINDINGS: There is a prosthetic knee in near anatomic alignment. There is soft tissue edema and emphysema. IMPRESSION: 1. Postoperative change. Appears in near-anatomic alignment
[2022-10-17] MEDS ORDERED: traMADol 50 MG TAB PO PRN (18:12)
[2022-10-17] MEDS ORDERED: ONDANSETRON 4 MG/2 ML VIAL IVP PRN (18:14)
[2022-10-17] MEDS ORDERED: ALPRAZolam 0.25 MG TAB PO PRN (20:15)
[2022-10-17] MEDS ORDERED: predniSONE 10 MG TAB PO SCH (21:00)
[2022-10-17] MEDS ORDERED: SENNOSIDES-DOCUSATE SODIUM 1 EACH TAB PO SCH (21:00)
[2022-10-17] MEDS ORDERED: EZETIMIBE 10 MG TAB PO SCH (21:00)
[2022-10-17] MEDS ORDERED: PANTOPRAZOLE 40 MG TABLET PO SCH (21:00)
[2022-10-17] MEDS: methocarbamoL 500 MG TAB PO SCH (21:45)
--- NOTE | 2022-10-17 21:57 | P.CONS ---
History of Present Illness - Reason for Consult Consult date: 10/17/22 Medical management Requesting physician: Julius Gonzáles - Chief Complaint Right knee surgery - History of Present Illness Very pleasant 58-year-old patient who follows with Dr. Delong. Chronic stable medical conditions include GERD, hyperlipidemia, osteoarthritis, obstructive sleep apnea uses CPAP machine. Patient recently was being treated for a sinus infection and is finishing off prednisone taper. Patient has undergone revision right total knee arthroplasty. Postprocedure some pain present. No nausea vomiting. No chest pain or pressure. Laying in bed. Review of systems: GEN.: None EYES: None HEENT: None NECK: None RESPIRATORY: None CARDIOVASCULAR: None GASTROINTESTINAL: None GENITOURINARY: None MUSCULOSKELETAL: Joint pains LYMPHATICS: None HEMATOLOGICAL: None PSYCHIATRY: None NEUROLOGICAL: None Past medical history to include: GERD, hyperlipidemia, osteoporosis, obstructive sleep apnea, uses CPAP, anxiety Social history: No smoking or alcohol. Lives alone. Physical examination: VITAL SIGNS: 97.4, 60, 16, 125/76, 93% on room air GENERAL: BMI 37.7, reclining bed awake not in distress. EYES: Pupils equal. Conjunctiva normal. HEENT: External appearance of nose and ears normal, oral cavity grossly normal. NECK: JVD not raised; masses not palpable. HEART: First and second heart sounds are normal; no edema. LUNGS: Respiratory rate normal; clear to auscultation. ABDOMEN: Soft, nontender, liver spleen not palpable, no masses palpable. PSYCH: Alert and oriented x3; mood and affect normal. MUSCULOSKELETAL:No Clubbing/cyanosis;muscles-grossly intact. Dressing over the right knee. NEUROLOGICAL: Cranial nerves grossly intact; no facial asymmetry, power and sensation grossly intact. LYMPHATICS: No lymph nodes palpable in the axilla and neck INVESTIGATIONS, reviewed in the clinical context: September 06 white count 7.6 hemoglobin 13.4 platelets 428 Assessment and plan: -Revision right total knee arthroplasty Xarelto for DVT prophylaxis per orthopedics. -Recent sinus infection. Complete prednisone taper. -Hyperlipidemia Zetia 10 mg daily at bedtime -GERD Omeprazole 20 mg daily at bedtime -Anxiety not otherwise specified Xanax when necessary Care was discussed with the patient. Questions answered. Thank you Dr. Gonzáles Past Medical History Past Medical History: GERD/Reflux, Hyperlipidemia, Osteoarthritis (OA), Sleep Apnea/CPAP/BIPAP Additional Past Medical History / Comment(s): hx. heart murmur, lower leg swelling. CURRENTLY ON PREDNISONE AND ANTIBIOTIC FOR SINUS INFECTION-DR. GONZÁLES AWARE. USES C PAP History of Any Multi-Drug Resistant Organisms: None Reported Past Surgical History: Adenoidectomy, Cholecystectomy, Hysterectomy, Joint Replacement, Orthopedic Surgery, Tonsillectomy Additional Past Surgical History / Comment(s): ?rt ovary removed,RT KNEE SX, RT TKA, left foot x 3 or 4, COLONOSCOPY, Past Anesthesia/Blood Transfusion Reactions: Postoperative Nausea & Vomiting (PONV) Additional Past Anesthesia/Blood Transfusion Reaction / Comm: no hx blood transfusion Past Psychological History: Anxiety Smoking Status: Never smoker Past Alcohol Use History: None Reported Past Drug Use History: None Reported - Past Family History Mother Family Medical History: Cancer, Hyperlipidemia, Hypertension Additional Family Medical History / Comment(s): precancerous polyps Father Family Medical History: Cancer, Hyperlipidemia, Hypertension Medications and Allergies Home Medications Medication Instructions Recorded Confirmed Type ALPRAZolam [Xanax] 0.25 mg PO DAILY PRN 10/13/22 10/17/22 History Doxycycline [Vibramycin] 100 mg PO BID 10/13/22 10/13/22 History Ezetimibe [Zetia] 10 mg PO HS 10/13/22 10/17/22 History Fexofenadine/Pseudoephedrine 1 tab PO DAILY 10/13/22 10/17/22 History [Dede-D 24 Hour Tablet] Furosemide [Lasix] 20 mg PO DAILY 10/13/22 10/17/22 History Omeprazole 20 mg PO HS 10/13/22 10/17/22 History methocarbamoL [Methocarbamol] 500 mg PO BID 10/13/22 10/17/22 History predniSONE 10 mg PO BID 10/13/22 10/13/22 History Allergies Allergy/AdvReac Type Severity Reaction Status Date / Time adhesive Allergy Rash/Hives Verified 10/17/22 10:09 hydrocodone bitartrate Allergy eye Verified 10/17/22 10:09 [From Vicodin] swelling and itching Iodinated Contrast Media Allergy Swelling Verified 10/17/22 10:09 [Iodinated Contrast Media - IV Dye] Penicillins Allergy Anaphylaxis Verified 10/17/22 10:09 shellfish derived [Shrimp] Allergy LIPS Verified 10/17/22 10:09 SWELLING walnut Allergy PER Verified 10/17/22 10:09 ALLERGY TESTING peas AdvReac HEADACHE Verified 10/17/22 10:09 Physical Exam Vitals: Vital Signs Temp Pulse Pulse Resp BP Pulse Ox 10/17/22 20:00 97.4 F L 60 16 125/76 95 10/17/22 17:34 97.4 F L 64 17 134/77 93 L 10/17/22 17:00 56 L 14 118/73 98 10/17/22 16:30 58 L 17 128/71 96 10/17/22 16:00 56 L 16 131/75 95 10/17/22 15:30 60 18 134/68 94 L 10/17/22 15:15 57 L 15 143/82 94 L 10/17/22 15:03 61 15 138/77 96 10/17/22 14:45 64 17 137/72 96 10/17/22 14:30 66 132/70 97 10/17/22 14:26 96.8 F L 68 16 121/66 97 10/17/22 11:56 72 16 117/63 10/17/22 10:20 98.3 F 70 16 112/68 94 L Intake and Output 10/17/22 10/17/22 10/17/22 06:59 14:59 22:59 Intake Total 1351 200 Output Total 50 Balance 1301 200 Intake: IV 1351 200 Output: Estimated Blood Loss 50 Other: # Voids 0 Weight 84.7 kg 84.7 kg
[2022-10-17] MEDS: oxyCODONE-APAP 5-325MG 1 EACH TAB PO PRN (22:04)
[2022-10-18] MEDS: oxyCODONE-APAP 5-325MG 1 EACH TAB PO PRN ×2 (03:44→14:05)
--- NOTE | 2022-10-18 08:25 | P.DS ---
Providers Date of admission: 10/17/2022 Expected date of discharge: 10/18/22 Attending physician: Julius Bradley Consults: 10/17/22 13:59 Consult Physician Routine Consulting Provider: Robi Gauthier Consult Reason/Comments: medical management s/p revision right total knee arthroplasty Do you want consulting provider notified?: Yes Primary care physician: Jona Delong [facility] Course: Date of admission: 10/17/2022 Date of discharge: 10/18/2022 Admission diagnosis: Painful right total knee arthroplasty/patellofemoral arthritis Discharge diagnosis: Same Attending physician: Dr. Bradley Surgical procedures: Revision right total knee arthroplasty Brief history: Patient is a 52-year-old female with a history of painful right total knee arthroplasty/patellofemoral arthritis. At this point patient has failed conservative treatment measures and has opted to proceed with a elective revision right total knee arthroplasty. Hospital course: Details of patient's surgery can be found in operative report. Patient tolerated the procedure well and was subsequently transported to orthopedic floor. Patient's orthopeidc and medical care was provided daily. Patient had daily laboratory tests performed for evaluation of overall blood counts. Patient had daily physical therapy to include strengthening range of motion as well as education with walker ambulation. Patient was treated with Xarelto for their postoperative DVT prophylaxis during their inpatient stay. Patient was noted to have a relatively uneventful postoperative course. Patient reported satisfactory pain control with oral pain medications by postoperative day 1. Patient showed satisfactory progress with physical therapy. Patient moved steadily through the program and had no difficulty meeting the goals by postoperative day 1. Given patient's otherwise satisfactory course and having met physical therapy goals, plan is to discharge patient home with health services on postoperative day 1. Discharge condition/disposition: Patient will be discharged home with health services in stable condition. Discharge medications: Instructions are given on resumption of patient's normal daily medications per primary care recommendation, in addition patient will be prescribed Mozier; senna; Eliquis 2.5 mg BID x 2 weeks. Discharge instructions: 1. Wound care and infection precautions, keep incision dry and covered while showering, no lotions, creams, moisturizers. No soaking, tubs, pools, hottubs. Do not scrub over the incision. 2. Weight-bear as tolerated with walker / cane until follow-up. 3. Ice and elevate when necessary. Do not exceed 20 minutes per hour with ice pack. 4. Utilize compression sleeve until seen at first follow up appointment. 5. Visiting nursing care. 6. Home physical therapy including home CPM. 7. Pain meds and anticoagulants per prescription. 8. Pain medication has potential to cause constipation. Increase oral fluid and fiber intake. Contact primary care provider if you have not had a bowel movement within 48 hours after discharge 9. No anti-inflammatory medication until discussed at first post operative visit, this including Motrin, Aleve, Mobic, Diclofenac. 10. Follow up in office at 2 weeks postop with Pasha Benavidez PA-C / Donaldo Lagunas PA-C 11. Follow up with your primary care doctor 7-10 days after discharge. 12. Contact [facility] with any questions, . Keep incision clean, dry, intact. While showering, cover fusion tape with Saran wrap. Keep fusion tape on until follow-up appointment in office in 2 weeks. Assessment: Painful right total knee arthroplasty/patellofemoral arthritis Procedures: Revision right total knee arthroplasty Patient Condition at Discharge: Good Plan - Discharge Summary Discharge Rx Participant: Yes New Discharge Prescriptions: New Apixaban [Eliquis] 2.5 mg PO BID #60 tab Sennosides/Docusate Sodium [Senna Plus 8.6-50 mg Softgel] 1 each PO DAILY #20 capsule oxyCODONE-APAP 5-325MG [Percocet 5-325 mg] 1 tab PO Q6HR PRN #28 tab PRN Reason: Pain No Action Doxycycline [Vibramycin] 100 mg PO BID Furosemide [Lasix] 20 mg PO DAILY methocarbamoL [Methocarbamol] 500 mg PO BID predniSONE 10 mg PO BID Ezetimibe [Zetia] 10 mg PO HS Fexofenadine/Pseudoephedrine [Dede-D 24 Hour Tablet] 1 tab PO DAILY ALPRAZolam [Xanax] 0.25 mg PO DAILY PRN PRN Reason: Anxiety Omeprazole 20 mg PO HS Discharge Medication List ALPRAZolam [Xanax] 0.25 mg PO DAILY PRN 10/13/22 [History] Doxycycline [Vibramycin] 100 mg PO BID 10/13/22 [History] Ezetimibe [Zetia] 10 mg PO HS 10/13/22 [History] Fexofenadine/Pseudoephedrine [Dede-D 24 Hour Tablet] 1 tab PO DAILY 10/13/22 [History] Furosemide [Lasix] 20 mg PO DAILY 10/13/22 [History] Omeprazole 20 mg PO HS 10/13/22 [History] methocarbamoL [Methocarbamol] 500 mg PO BID 10/13/22 [History] predniSONE 10 mg PO BID 10/13/22 [History] Apixaban [Eliquis] 2.5 mg PO BID #60 tab 10/18/22 [Rx] Sennosides/Docusate Sodium [Senna Plus 8.6-50 mg Softgel] 1 each PO DAILY #20 capsule 10/18/22 [Rx] oxyCODONE-APAP 5-325MG [Percocet 5-325 mg] 1 tab PO Q6HR PRN #28 tab 10/18/22 [Rx] Follow up Appointment(s)/Referral(s): Donaldo Lagunas PAC [PHYSICIAN CANVASSING MANAGER] - 2 Weeks Patient Instructions/Handouts: Knee Replacement (DC) Activity/Diet/Wound Care/Special Instructions: Orthopedic Discharge Instructions: 1. Wound care and infection precautions, keep incision dry and covered while showering, no lotions, creams, moisturizers. No soaking, pools, hot tubs. Do not scrub over incision. 2. Weight-bear as tolerated with walker / cane until follow-up. 3. Ice and elevate when necessary. Do not exceed 20 minutes per hour with ice pack. 4. Utilize compression sleeve until seen at first follow up appointment. 5. Pain meds and anticoagulants per prescription. 6. Pain medication has potential to cause constipation. Increase oral fluid and fiber intake. Contact primary care provider if you have not had a bowel movement within 48 hours after discharge. 7. No anti-inflammatory medication until discussed at first post operative visit, this including Motrin, Aleve, Mobic, Diclofenac. 8. Follow up in office at 2 weeks postop with Pasha Benavidez PA-C / Donaldo Lagunas PA-C 9. Follow up with your primary care doctor 7-10 days after discharge. 10. Contact [facility] with any questions, . Keep incision clean, dry, intact. While showering, cover fusion tape with Saran wrap. Keep fusion tape on until follow-up appointment in office in 2 weeks. Discharge Disposition: HOME WITH HOME HEALTH SERVICES
--- NOTE | 2022-10-18 08:29 | P.PN ---
Subjective Progress Note Date: 10/18/22 Principal diagnosis: Painful right total knee arthroplasty/patellofemoral arthritis Patient was seen at bedside this morning lying semirecumbent position with dressing over right knee. Patient says she has been up walking a few times since surgery was performed yesterday. Patient says she is in a moderate amount of pain, however, medication has helped control the pain in her knee. Patient states she has urinated several times since surgery. Patient says she has not had bowel movement yet, however, patient says she has been passing gas. Patient says she does have a walker at home. Patient says she is looking for the working with therapy earlier this morning and going home later today. Patient denies chest pain, fever, shortness breath, nausea, vomiting, change in vision, loss of bowel/bladder control. Objective - Vital Signs Vital signs: Vital Signs Temp 98.2 F 10/18/22 07:00 Pulse 62 10/18/22 07:00 Resp 14 10/18/22 07:00 BP 118/78 10/18/22 07:00 Pulse Ox 96 10/18/22 07:00 FiO2 Intake & Output 10/17/22 10/18/22 10/18/22 18:59 06:59 18:59 Intake Total 1551 Output Total 50 Balance 1501 Weight 84.7 kg Intake: IV 1551 Output: Estimated Blood Loss 50 Other: Voiding Method Toilet # Voids 0 1 - Exam Right knee: Incision is clean, dry, and intact. The exofin fusion tape is in good condition. There is minimal soft tissue swelling and ecchymosis surrounding the medial and lateral aspects of the incision. Calf is soft, no tenderness with palpation. Plantar flexion, dorsiflexion, EHL, FHL are intact. Sensory exam to light touch throughout the extremity is intact, dorsal pedis pulses 2+. Assessment and Plan Assessment: 1. Painful right total knee arthroplasty/patellofemoral arthritis - Postoperative day #1 status post Revision right total knee arthroplasty Plan: 1. Painful right total knee arthroplasty/patellofemoral arthritis - Revision right total knee arthroplasty performed yesterday, 10/17/2022. Patient stable at bedside this morning. Patient does have a walker at home. Pending physical therapy evaluation later this morning, plan for discharge home with health services today. 2. Appreciate medical management 3. Pain management - oxycodone 4. DVT prophylaxis - Xarelto in hospital. Going home with Eliquis 2.5 mg twice a day 2 weeks 5. GI prophylaxis - senna 6. PT/OT - weightbearing as tolerated walker 7. Encourage incentive spirometer use 8. Discharge planning - discharge home today with health services pending PT eval Time with Patient: Less than 30
[2022-10-18] MEDS ORDERED: predniSONE 5 MG TAB PO SCH (09:00)
[2022-10-18] MEDS ORDERED: LORATADINE-PSEUDOEPH 5-120 MG 1 EACH TAB.ER.12H PO SCH (09:00)
[2022-10-18] MEDS ORDERED: RIVAROXABAN 10 MG TAB PO SCH (09:00)
[2022-10-18] MEDS: methocarbamoL 500 MG TAB PO SCH (09:44)
[2022-10-18 11:38] LABS: Basophils # (A) 0.02 X 10*3/uL (0.00-0.10); Basophils % (A) 0.1 %; Eosinophils # (A) 0 X 10*3/uL (0.04-0.35); Eosinophils % (A) 0 %; HCT 37.7 % (37.2-46.3); HGB 12.3 d/dL (12.0-15.0); Lymphocytes # (A) 1.57 X 10*3/uL (0.90-5.00); Lymphocytes % (A) 10.2 %; MCH 28.6 pg (27.0-32.0); MCHC 32.6 d/dL (32.0-37.0); MCV 87.7 FL (80.0-97.0); Mean Platelet Volume 9.4 FL (9.5-12.2); Monocytes # (A) 1.13 X 10*3/uL (0.20-1.00); Monocytes % (A) 7.4 %; NRBC Per 100 WBC 0 X 10*3/uL (0.00-0.01); Neutrophils # (A) 12.53 X 10*3/uL (1.80-7.70); Neutrophils % (A) 81.8 %; Platelet Count 412 X 10*3/uL (140-440); RDW 12.7 % (11.5-14.5); WBC 15.33 X 10*3/uL (4.50-10.00)
[2022-10-18] MEDS: LACTATED RINGERS 1,000 ML IV SCH (11:43)
[2022-10-18 12:52] VITALS: BP 108/71; PULSE 72; RESP 16; TEMP 98.4
--- NOTE | 2022-10-18 15:15 | P.PN ---
Progress Note - Text Progress Note Date: 10/18/22 - Chief Complaint Right knee surgery - History of Present Illness Very pleasant 58-year-old patient who follows with Dr. Delong. Chronic stable medical conditions include GERD, hyperlipidemia, osteoarthritis, obstructive sleep apnea uses CPAP machine. Patient recently was being treated for a sinus infection and is finishing off prednisone taper. Patient has undergone revision right total knee arthroplasty. Postprocedure some pain present. No nausea vomiting. No chest pain or pressure. Laying in bed. October 18: Pain disease doubled. Did ambulate. Eating well. Feeling better. Questions answered. Current medications reviewed Past medical history to include: GERD, hyperlipidemia, osteoporosis, obstructive sleep apnea, uses CPAP, anxiety Social history: No smoking or alcohol. Lives alone. Physical examination: VITAL SIGNS: 98.4, 72, 16, 108/71, 98% room air GENERAL: Sitting up, comfortable EYES: Pupils equal. Conjunctiva normal. HEENT: External appearance of nose and ears normal, oral cavity grossly normal. NECK: JVD not raised; masses not palpable. HEART: First and second heart sounds are normal; no edema. LUNGS: Respiratory rate normal; clear to auscultation. ABDOMEN: Soft, nontender, liver spleen not palpable, no masses palpable. PSYCH: Alert and oriented x3; mood and affect normal. MUSCULOSKELETAL:No Clubbing/cyanosis;muscles-grossly intact. Dressing over the right knee. INVESTIGATIONS, reviewed in the clinical context: October 18: White count 15.3 hemoglobin 12.3 platelets 412 September 06 white count 7.6 hemoglobin 13.4 platelets 428 Assessment and plan: -Revision right total knee arthroplasty Eliquis for DVT prophylaxis per orthopedics. -Recent sinus infection. Doppler prednisone. Complete dose of doxycycline -Hyperlipidemia Zetia 10 mg daily at bedtime -GERD Omeprazole 20 mg daily at bedtime -Anxiety not otherwise specified Xanax when necessary Care was discussed with the patient. Thank you Dr. Gonzáles Past Medical History Past Medical History: GERD/Reflux, Hyperlipidemia, Osteoarthritis (OA), Sleep Apnea/CPAP/BIPAP Additional Past Medical History / Comment(s): hx. heart murmur, lower leg swelling. CURRENTLY ON PREDNISONE AND ANTIBIOTIC FOR SINUS INFECTION-DR. GONZÁLES AWARE. USES C PAP History of Any Multi-Drug Resistant Organisms: None Reported Past Surgical History: Adenoidectomy, Cholecystectomy, Hysterectomy, Joint Replacement, Orthopedic Surgery, Tonsillectomy Additional Past Surgical History / Comment(s): ?rt ovary removed,RT KNEE SX, RT TKA, left foot x 3 or 4, COLONOSCOPY, Past Anesthesia/Blood Transfusion Reactions: Postoperative Nausea & Vomiting (PONV) Additional Past Anesthesia/Blood Transfusion Reaction / Comm: no hx blood transfusion Past Psychological History: Anxiety Smoking Status: Never smoker Past Alcohol Use History: None Reported Past Drug Use History: None Reported - Past Family History Mother Family Medical History: Cancer, Hyperlipidemia, Hypertension Additional Family Medical History / Comment(s): precancerous polyps Father Family Medical History: Cancer, Hyperlipidemia, Hypertension Medications and Allergies Home Medications Medication Instructions Recorded Confirmed Type ALPRAZolam [Xanax] 0.25 mg PO DAILY PRN 10/13/22 10/17/22 History Doxycycline [Vibramycin] 100 mg PO BID 10/13/22 10/13/22 History Ezetimibe [Zetia] 10 mg PO HS 10/13/22 10/17/22 History Fexofenadine/Pseudoephedrine 1 tab PO DAILY 10/13/22 10/17/22 History [Dede-D 24 Hour Tablet] Furosemide [Lasix] 20 mg PO DAILY 10/13/22 10/17/22 History Omeprazole 20 mg PO HS 10/13/22 10/17/22 History methocarbamoL [Methocarbamol] 500 mg PO BID 10/13/22 10/17/22 History predniSONE 10 mg PO BID 10/13/22 10/13/22 History Allergies Allergy/AdvReac Type Severity Reaction Status Date / Time adhesive Allergy Rash/Hives Verified 10/17/22 10:09 hydrocodone bitartrate Allergy eye Verified 10/17/22 10:09 [From Vicodin] swelling and itching Iodinated Contrast Media Allergy Swelling Verified 10/17/22 10:09 [Iodinated Contrast Media - IV Dye] Penicillins Allergy Anaphylaxis Verified 10/17/22 10:09 shellfish derived [Shrimp] Allergy LIPS Verified 10/17/22 10:09 SWELLING walnut Allergy PER Verified 10/17/22 10:09 ALLERGY TESTING peas AdvReac HEADACHE Verified 10/17/22 10:09
== END 2022-10-18 14:09 | disposition home health service (06) | DRG 468 ==
LOC: OR 09:04 → 4SSUR 14:23 → OR 10-18 14:09 → 4SSUR 10-18 14:09
PROVIDERS: ADMIT Orthopaedic Surgery; ATTEND Orthopaedic Surgery
PROC: 0SRC0J9 Replacement of Right Knee Joint with Synthetic Substitute, Cemented, Open Approach (ICD-10-PCS; 2022-10-17)
PROC: 0SUC09C Supplement Right Knee Joint with Liner, Patellar Surface, Open Approach (ICD-10-PCS; 2022-10-17)
PROC: 3E0T3BZ Introduction of Anesthetic Agent into Peripheral Nerves and Plexi, Percutaneous Approach (ICD-10-PCS; 2022-10-17)
PROC: 0SPC0JZ Removal of Synthetic Substitute from Right Knee Joint, Open Approach (ICD-10-PCS; principal; 2022-10-17 11:05)
DX: T84.84XA Pain due to internal orthopedic prosthetic devices, implants and grafts, initial encounter (principal); Z96.651 Presence of right artificial knee joint; M17.11 Unilateral primary osteoarthritis, right knee; M81.0 Age-related osteoporosis without current pathological fracture; Y83.1 Surgical operation with implant of artificial internal device as the cause of abnormal reaction of the patient, or of later complication, without mention of misadventure at the time of the procedure; Z82.49 Family history of ischemic heart disease and other diseases of the circulatory system; Z79.899 Other long term (current) drug therapy; K21.9 Gastro-esophageal reflux disease without esophagitis; G47.33 Obstructive sleep apnea (adult) (pediatric); E78.5 Hyperlipidemia, unspecified; E66.9 Obesity, unspecified; F41.9 Anxiety disorder, unspecified; Z90.710 Acquired absence of both cervix and uterus; Z90.721 Acquired absence of ovaries, unilateral; Z88.5 Allergy status to narcotic agent; Z91.041 Radiographic dye allergy status; Z91.048 Other nonmedicinal substance allergy status; Z68.37 Body mass index [BMI] 37.0-37.9, adult; Z90.49 Acquired absence of other specified parts of digestive tract; Z91.018 Allergy to other foods; Z88.0 Allergy status to penicillin; Z91.013 Allergy to seafood
CPT/HCPCS: 64448; 85025; 88305; 88331